=== PATIENT | male | born 1990 | race Caucasian/White ===

== ENCOUNTER 2016-06-11 01:40 | Emergency (ER) | payer MEDICAID ==
[~2016-06-11] VITALS: Ht 175.3 cm; Wt 86.2 kg
[2016-06-11 01:41] VITALS: BP 128/72
--- NOTE | 2016-06-11 02:23 | NUR ---
Patient to bed 03.
--- NOTE | 2016-06-11 02:30 | NUR ---
MD CAME AT BEDSIDE TO EVALUATE PT.
[2016-06-11] MEDS ORDERED: KETOROLAC 60 MG/2 ML VIAL IM ONE (02:45)
--- NOTE | 2016-06-11 03:01 | NUR ---
TORADOL 60 MG IM GIVEN FOR PAIN.
--- NOTE | 2016-06-11 03:10 | NUR ---
XRAY at bedside.
[2016-06-11 03:29] VITALS: BP 122/79
--- NOTE | 2016-06-11 03:29 | NUR ---
DISCHARGE NOTE ONLY: Patient discharged with v/s stable BY ER MD DR DICKSON. Written and verbal after care instructions given and explained BY ER MD DR DICKSON. Patient alert, oriented and verbalized understanding of instructions. Ambulatory with steady gait. All questions addressed prior to discharge BY ER MD DR DICKSON. ID band removed. Patient advised to follow up with PMD. Rx of NAPROSYN 500MG given. Patient educated on indication of medication including possible reaction and side effects. Opportunity to ask questions provided and answered BY ER MD DR DICKSON.
== END 2016-06-11 03:29 | disposition home or self-care (01) ==
LOC: MED 01:40
DX: S43.402A Unspecified sprain of left shoulder joint, initial encounter (principal); W19.XXXA Unspecified fall, initial encounter; Y93.89 Activity, other specified; Y92.89 Other specified places as the place of occurrence of the external cause; Y99.8 Other external cause status
CPT/HCPCS: 73030; 96372; 99284; J1885; Q0092